=== PATIENT | male | born 1960 | race Caucasian/White ===

== ENCOUNTER 2020-04-30 20:09 | Emergency (ER) | payer OTHER ==
[~2020-04-30] VITALS: Ht 172.7 cm; Wt 75.0 kg
[2020-05-01 01:16] VITALS: BP 110/85
== END 2020-05-01 01:19 | disposition home or self-care (01) ==
LOC: ER 20:09
DX: N48.89 Other specified disorders of penis (principal); R31.9 Hematuria, unspecified; R33.9 Retention of urine, unspecified; E78.00 Pure hypercholesterolemia, unspecified; I10 Essential (primary) hypertension
CPT/HCPCS: 99281